=== PATIENT | male | born 1940 | race Caucasian/White ===

== ENCOUNTER 2017-01-30 07:06 | Day surgery (SDC) | payer MEDICARE ==
[~2017-01-30] VITALS: Ht 172.7 cm; Wt 90.7 kg
[~2017-01-30 07:06] MED LIST: ASPIR 8181 MG PO; EPIN0.3P INJ; METOPROLOL TART25 MG PO; PRILOSEC OTC20 MG PO; ZYRTEC10 M3 PO
--- NOTE | 2017-01-30 08:30 | NUR ---
01/30/17 0833 Nina Brenner 4637-PATIENT ARRIVED TO PACU ON 3L NC O2 SAT 98% PATIENT REACTIVE OPENS EYES AND FALLS BACK ASLEEP.
--- NOTE | 2017-02-01 08:56 | OR ---
[facility] [address], [place] [address] Signed DATE OF OPERATION: 01/30/2017 SURGEON: Adi Moore MD UPPER ENDOSCOPY REPORT PREOPERATIVE DIAGNOSES: 1. Gastroesophageal reflux disease. 2. Distal esophageal dysphagia. POSTOPERATIVE DIAGNOSES: 1. Unspecified distal esophageal mass (35 cm) versus severe inflammation. 2. Moderate-sized hiatal hernia. PROCEDURE: EGD with CLOtest and biopsies of the antrum and the esophageal lesion. ESTIMATED BLOOD LOSS: None. INDICATIONS: Rk is a 76-year-old gentleman who was asked to see me for both upper and lower endoscopy. His lower endoscopy was for followup screening colonoscopy. He declined at this time, however, he is much more concerned about his esophagus. He said he is having distal esophageal dysphagia. He described acid reflux for many years. It looks like he is on Prilosec. He has had food gets stuck and he has to get up from the table and go vomit. Once his upper teeth were pulled in October of this year, he said it has gotten worse. He said he will not have his dentures until the spring. In the office, I had given Rk a booklet on upper endoscopy. We looked at that together along with the risks including, but not limited to gas, bloating, crampy abdominal pain, bleeding, perforation requiring surgery, and missed diagnosis. We also discussed the need for IV conscious sedation. He had expressed understanding and wished to proceed. In addition, we did ask that he undergo a barium swallow as well. PROCEDURE NOTE: Rk was taken into our endoscopy suite and placed in a supine semi-recumbent position. He was given divided doses of 4 mg of Versed and 100 mcg of fentanyl. The posterior oropharynx was anesthetized with Hurricaine spray. A bite block was utilized for the case. The adult gastroscope was introduced and advanced under direct visualization of the camera out into the third portion of the duodenum. The duodenum and pyloric channel were unremarkable. The stomach was not particularly concerning. We went ahead and took a biopsy of the antrum for pathologic review as well as CLOtest. Upon retroflexion of scope, he does have a hiatal hernia, although I was unable to completely Electronically Signed By: ADI MOORE MD 02/01/17 0856 PATIENT NAME: RK GONZALEZ OPERATIVE REPORT DATE OF : 44 PHYSICIAN: ADI MOORE MD REPORT #: [id number] REPORT IS CONFIDENTIAL AND NOT TO BE RELEASED WITHOUT AUTHORIZATION [facility] [address], [place] [address] Signed insufflate his stomach to get an excellent view of that. We did watch that through multiple respiratory cycles and he clearly has moderate-sized hiatal hernia. No gastric or esophageal varices. No ulcerations. The scope was withdrawn up to the area of the hiatal hernia in the GE junction. He has either very severe inflammatory changes or mass around the GE junction at 35 cm. We took multiple circumferential biopsies in this area. We also took pictures for photodocumentation. His middle and upper esophagus were unremarkable. After this, the gas was suctioned out and the gastroscope removed. Rk tolerated this procedure quite well. RECOMMENDATIONS: I will see Rk back in my office in 7 to 14 days to review his results along with a barium swallow. He may need a CT scan of the chest, abdomen, and pelvis as well. MD LIZA Parker/KENNEDYL /[id number] cc: DO Adi Torre MD Electronically Signed By: ADI MOORE MD 02/01/17 0856 PATIENT NAME: GONZALEZRK OPERATIVE REPORT DATE OF : 44 PHYSICIAN: ADI MOORE MD REPORT #: [id number] REPORT IS CONFIDENTIAL AND NOT TO BE RELEASED WITHOUT AUTHORIZATION
== END 2017-01-30 09:10 | disposition home or self-care (01) ==
LOC: DS 07:06 → OPS 07:06 → DS 08:15 → OPS 09:10
PROVIDERS: Colon & Rectal Surgery
PROC: 0DB78ZX Excision of Stomach, Pylorus, Via Natural or Artificial Opening Endoscopic, Diagnostic (ICD-10-PCS; 2017-01-30)
PROC: 0DB38ZX Excision of Lower Esophagus, Via Natural or Artificial Opening Endoscopic, Diagnostic (ICD-10-PCS; principal; 2017-01-30 08:15)
DX: C15.5 Malignant neoplasm of lower third of esophagus (principal); K29.50 Unspecified chronic gastritis without bleeding; K21.9 Gastro-esophageal reflux disease without esophagitis; K44.9 Diaphragmatic hernia without obstruction or gangrene; I48.0 Paroxysmal atrial fibrillation; E78.5 Hyperlipidemia, unspecified; Z86.19 Personal history of other infectious and parasitic diseases; Z88.0 Allergy status to penicillin; Z91.09 Other allergy status, other than to drugs and biological substances; Z79.82 Long term (current) use of aspirin; Z79.899 Other long term (current) drug therapy; Z90.49 Acquired absence of other specified parts of digestive tract
CPT/HCPCS: 86677; 88305; 99152; 99153; J2250; J3010; J7120

== ENCOUNTER 2017-05-20 13:54 | Emergency (ER) | payer MEDICARE, OTHER ==
[~2017-05-20] VITALS: Ht 172.7 cm; Wt 92.3 kg
--- OUTSIDE RECORDS SUMMARY | ~2017-05-20 | XMS | Encounter Summary ---
Demographics + + + | Address | [address] | | | [place] [address] | + + + | Home Phone | | + + + | Preferred Language | Unknown | + + + | Marital Status | | + + + | Spiritism Affiliation | PEN | + + + | Race | White | + + + | Ethnic Group | Not or | + + + Author + + + | Author | [facility] | + + + | Organization | [facility] | + + + | Address | Unknown | + + + | Phone | Unavailable | + + + Support + + + + + | Name | Relationship | Address | Phone | + + + + + | Mally Mckay | ECON | [address] | | | | | [place] | | | | | [address] | | + + + + + Care Team Providers + +------+ + | Care Application Development Team Lead Name | Role | Phone | + +------+ + | Johan Schumacher DO | PCP | | + +------+ + Reason for Visit + + + | Reason | Comments | + + + | Tumor Board | ECC | | Recommendation | | + + + Encounter Details +--------+ + + + + | Date | Type | Department | Care Team | Description | +--------+ + + + + | 03/19/ | Documentati | [facility] | Trent Metcalf MD | Tumor Board | | 2018 | on | Center at [facility] [address]th | [address] | Recommendation (ECC) | | | | Floor [address] | [facility], | | | | | [place] Mailcode: [facility] | [place] [address] | | | | | [facility] | [phone] | | | | | and Healing, 6th | | | | | | floor [place], [place] | | | | | | [address] | | | | | | [phone] | | | +--------+ + + + + Social History + +-------+ +--------+------+ | Tobacco Use | Types | Packs/Day | Years | Date | | | | | Used | | + +-------+ +--------+------+ | Never Smoker | | | | | + +-------+ +--------+------+ + +---+---+---+ | Smokeless Tobacco: | | | | | Never Used | | | | + +---+---+---+ + + +---------+ + | Alcohol Use | Drinks/We | oz/Week | Comments | | | ek | | | + + +---------+ + | No | | | | + + +---------+ + + + + | Sex Assigned at | Date Recorded | | | | + + + | Not on file | | + + + as of this encounter Plan of Treatment Not on fileas of this encounter Visit Diagnoses Not on filein this encounter"
--- OUTSIDE RECORDS SUMMARY | ~2017-05-20 | XMS | Encounter Summary ---
Demographics + + + | Address | [address] | | | [place] [address] | + + + | Home Phone | | + + + | Preferred Language | Unknown | + + + | Marital Status | | + + + | Christian Affiliation | PEN | + + + | Race | White | + + + | Ethnic Group | Not or | + + + Author + + + | Author | [facility] | + + + | Organization | [facility] | + + + | Address | Unknown | + + + | Phone | Unavailable | + + + Support + + + + + | Name | Relationship | Address | Phone | + + + + + | Mally Mckay | ECON | [address] | | | | | [place] | | | | | [address] | | + + + + + Care Team Providers + +------+ + | Care Pearl Glue Drier Name | Role | Phone | + +------+ + | Lars Soares DO | PCP | | + +------+ + Reason for Visit AUTH/CERT +--------+--------+ + + + + | Status | Reason | Specialty | Diagnoses / | Referred By | Referred To | | | | | Procedures | Contact | Contact | +--------+--------+ + + + + | | | | | | | +--------+--------+ + + + + Encounter Details +--------+ + + + + | Date | Type | Department | Care Team | Description | +--------+ + + + + | 03/07/ | Hospital | [facility] [address] | Rell Montesinos, | | | 2017 | Encounter | [address] | MD [address] | | | | | [facility] | [address] | | | | | [place] | [place], [place] | | | | | ([facility]) | [address] | | | | | [place] [address] | [phone] | | | | | [phone] | | | +--------+ + + + [...] + + + as of this encounter Last Filed Vital Signs + + + + | Vital Sign | Reading | Time Taken | + + + + | Blood Pressure | 135/71 | 03/07/2017 3:02 PM PST | + + + + | Pulse | 56 | 03/07/2017 3:02 PM PST | + + + + | Temperature | 36.6 C (97.9 F) | 03/07/2017 2:25 PM PST | + + + + | Respiratory Rate | 16 | 03/07/2017 3:02 PM PST | + + + + | Oxygen Saturation | 100% | 03/07/2017 3:02 PM PST | + + + + | Inhaled Oxygen | - | - | | Concentration | | | + + + + | Weight | 88.6 kg (195 lb 4.8 | 03/07/2017 11:57 AM PST | | | oz) | | + + + + | Height | 172.7 cm (5' 7.99") | 03/07/2017 11:57 AM PST | + + + + | Body Mass Index | 29.7 | 03/07/2017 11:57 AM PST | + + + + in this encounter Discharge Instructions April Sotelo RN - 03/07/2017Home Care Instructions after EGD (Upper Endoscopy) with EUS (E ndoscopic Ultrasound) You may resume your normal diet and medications unless told otherwise. Medications The medications you received for your procedure can cause you to be forgetful and drowsy an d will take the remainder of the day to wear off. DO NOT drink alcohol, drive, operate heavy machinery, sign legal documents, or make major d ecisions until tomorrow. Common After Effects Mild abdominal pain, bloating, and gas. Sore throat. You may treat it with throat lozenges and/or gargle with warm salt water. You may bruise at your IV site. If you have pain, redness, or swelling at your IV site a pply a warm compress. Complications Call your GI doctor if you have: Abnormal pain or any new unexplained symptoms. Shortness of breath, chest or neck pain. Vomiting blood or rectal bleeding. Fever above 101.5 Redness, pain, or swelling at your IV site that is not relieved with warm compress. For any questions related to your procedure, call Friday- Friday 8:00- 4:30 Call the endoscopy department toll free ext. [phone] or After business hours or on weekends and holiday Hospital Change Person toll free [phone] ext. [phone] and have the GI doctor admissions nurse paged. The provider who performed your procedure is: Dr. Montesinos Results of your EGD/EUS: procedure completed Follow up Appointments with: Dr Arenas Your primary care provider or referring provider will receive copies of the procedure repor t and all the pathology reports with recommendations for treatment if needed. If Noted above that biopsies were taken or polyps removed we will receive the results in ap proximately 1 week. If you have not heard from us after 2 weeks please call for your results . in this encounter Medications at Time of Discharge + + +-------+---------+--------+ + | Medication | Sig. | Disp. | Refills | Start | End Date | | | | | | Date | | + + +-------+---------+--------+ + | aspirin EC 81 mg | Take 81 mg by mouth | | | | | | oral tablet,delayed | once daily in the | | | | | | release (DR/EC) | morning. | | | | | + + +-------+---------+--------+ + | cetirizine 10 mg | Take 10 mg by mouth | | | | | | oral tablet | once daily in the | | | | | | | morning. | | | | | + + +-------+---------+--------+ + | metoprolol | Take 25 mg by mouth | | | | | | tartrate 25 mg oral | two times daily. | | | | | | tablet | | | | | | + + +-------+---------+--------+ + | omeprazole 20 mg | Take 20 mg by mouth | | | | | | oral capsule,delayed | once daily in the | | | | | | release(DR/EC) | morning. | | | | | + + +-------+---------+--------+ + as of this encounter Plan of Treatment Not on fileas of this encounter Procedures + +--------+ + + + | Procedure Name | Priori | Date/Time | Associated Diagnosis | Comments | | | ty | | | | + +--------+ + + + | EUS UPPER | Routin | 03/07/2017 | Malignant neoplasm | Results for this | | | e | 1:53 PM | of esophagus, | procedure are in the | | | | PST | unspecified location | results section. | | | | | (HCC) | | + +--------+ + + + in this encounter Results EUS UPPER (03/07/2017 1:53 PM) + + + | Specimen | Performing Laboratory | + + + | | [facility] | + + + + + | Narrative | + + | Procedure Date: 03/07/2017 Patient Name: Kevin Mckay Order #: | | [id number] Date of : 1940 CSN: [id number] Admit Type: Ambulatory Room: GI 3 | | Procedure: Upper EUS Indications: Pre-treatment | | staging of esophageal adenocarcinoma Providers: RELL MONTESINOS MD | | (Doctor), JEREMIAH RUANO, RN (Nurse), | | BEBO VARNER, Car Clerk Pullman (Car Clerk Pullman) Referring MD: HEIDY ARENAS MD | | Requesting Provider: Medicines: Monitored Anesthesia Care | | Complications: No immediate complications. Procedure: | | Pre-Anesthesia Assessment: - Pre-procedure | | physical examination revealed no | | contraindications to sedation. - Airway | | Examination: Mallampati Class III (part of the | | uvula and soft palate visualized). | | - ASA Grade Assessment: III - A patient with | | severe systemic disease. | | - After reviewing the risks and benefits, the | | patient was deemed in satisfactory condition | | to undergo the procedure. | | - The anesthesia plan was to use monitored | | anesthesia care (MAC). | | - Immediately prior to administration of | | medications, the patient was re-assessed for | | adequacy to receive sedatives. | | Prior to the procedure, a History and Physical | | with airway assessment was performed (see | | patient record), and patient medications and | | allergies were reviewed. The risks and | | benefits of the procedure and the sedation | | options and risks were discussed. All questions were | | answered and informed consent was obtained. | | After reviewing the risks and benefits, the | | patient was deemed in satisfactory condition | | to undergo the procedure. Immediately prior | | to administration of medications, the patient | | was re-assessed for adequacy to receive | | sedatives. The heart rate, respiratory rate, oxygen | | saturations, blood pressure, adequacy of | | pulmonary ventilation, and response to care | | were monitored throughout the procedure. The | | physical status of the patient was | | re-assessed after the procedure. The Olympus | | [id number] Gastroscope #[id number] was introduced | | through the mouth, and advanced to the second | | part of duodenum. The Olympus [id number] | | Radial Echoendoscope #[id number] was introduced | | through the mouth, and advanced to the | | duodenal bulb. The upper EUS was accomplished | | without difficulty. The patient tolerated | | the procedure well. Estimated Blood Loss: Estimated blood loss was minimal. | | Findings: Endoscopic Finding : The esophagus and gastroesophageal | | junction were examined with white light from a forward view and retroflexed | | position. 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 These changes involved the mucosa at the upper extent of | | the gastric folds (37 cm from the incisors) extending to the Z-line (25 cm | | from the incisors). The maximum longitudinal extent of these esophageal | | mucosal changes was 12 cm in length. A medium-sized hiatal hernia was | | found. The proximal extent of the gastric folds (end of tubular esophagus) | | was 37 cm from the incisors. The hiatal narrowing was 40 cm from the | | incisors. Arising from the area of Martin's esophagis, a large ulcerating | | mass was found in the lower third of the esophagus extending into | | gastroesophageal junction, 30 to 37 cm from the incisors. The mass was | | non-obstructing and partially circumferential (involving two thirds of the | | lumen circumference). The exam of the stomach was otherwise normal. | | The examined duodenum was endoscopically normal. Endosonographic Finding : | | A hypoechoic mass was found in the thoracic esophagus and in the | | gastroesophageal junction. The mass was encountered at 30 cm from the | | incisors and extended to 37 cm. The lesion was partially circumferential | | (involving 70% of the lumen). The endosonographic borders were irregular. The | | mass measured up to 10 mm in thickness. There was sonographic evidence | | suggesting invasion into the adventitia (Layer 5). There was no sign of | | significant endosonographic abnormality in the common bile duct. The maximum | | diameter of the duct was 3 mm. There was no sign of significant | | endosonographic abnormality in the pancreatic head and in the pancreatic | | body. The pancreatic duct measured up to 2 mm in diameter. No | | lymphadenopathy seen. 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 | | This was staged T3 N0 Mx by endosonographic | | criteria. Recommendation: - Discharge patient to home (ambulatory). | | - Return to referring physician as previously | | scheduled. - The findings and recommendations | | were discussed with the patient and their | | spouse. Attending Participation: I personally performed the entire procedure. | | MD RELL Soto MD 03/07/2017 2:26:50 PM This report has been | | signed electronically. Number of Addenda: 0 Note Initiated On: 03/07/2017 1:53 PM CC | | Letter to: LARS SOARES, DO | + + in this encounter Visit Diagnoses + + | Diagnosis | + + | Malignant neoplasm of esophagus, unspecified location (HCC) - Primary | + + Admitting Diagnoses + + | Diagnosis | + + | Malignant neoplasm of esophagus, unspecified - C15.9 (ICD-10-CM) - 150.9 (ICD-9-CM) - | | Malignant neoplasm of esophagus, unspecified location (HCC) | + + Administered Medications + +--------+---------+------+------+------+ | Medication Order | MAR | Action | Dose | Rate | Site | | | Action | Date | | | | + +--------+---------+------+------+------+ + +---+ | lidocaine viscous (XYLOCAINE | | | VISCOUS) 2 % mucosal solution 15 | | | mL 15 mL, oral, INTRAPROCEDURE | | | PRN, Starting Fri03/07/17 at | | | 1200, Until Fri03/07/17 at 2213, | | | sore oropharynx | | + +---+ | | | + +---+ | simethicone (MYLICON) | | | suspension 3.333 mg 3.333 mg | | | (rounded from 3.3333 mg = 1 | | | drop), oral, INTRAPROCEDURE PRN, | | | Starting Fri03/07/17 at 1200, | | | Until Fri03/07/17 at 2213, gas | | | bubbles in endoscope | | + +---+ | | | + +---+ + +---------+ +---+---+---+ | sodium chloride 0.9% IV | New Bag | 03/07/20 | | | | | infusion 50 mL/hr, intravenous, | | 17 13:45 | | | | | CONTINUOUS, Starting 03/07/17 | | PST | | | | | at 1215, Until Fri03/07/17 at | | | | | | | 2213 | | | | | | + +---------+ +---+---+---+ + + +---+---+---+ | given by anesthesiology | 03/07/20 | | | | | | 17 14:15 | | | | | | PST | | | | + + +---+---+---+ +---+---+ | | | +---+---+ in this encounter
--- OUTSIDE RECORDS SUMMARY | ~2017-05-20 | XMS | Encounter Summary ---
Demographics + + + | Address | [address] | | | [place] [address] | + + + | Home Phone | | + + + | Preferred Language | Unknown | + + + | Marital Status | | + + + | Jew Affiliation | PEN | + + + | Race | White | + + + | Ethnic Group | Not or | + + + Author + + + | Author | [facility] | + + + | Organization | [facility] | + + + | Address | Unknown | + + + | Phone | Unavailable | + + + Support + + + + + | Name | Relationship | Address | Phone | + + + + + | Mally Mckay | ECON | [address] | | | | | [place] | | | | | [address] | | + + + + + Care Team Providers + +------+ + | Care School Transportation Supervisor Name | Role | Phone | + +------+ + | Johan Schumacher DO | PCP | | + +------+ + Reason for Visit + + + | Reason | Comments | + + + | New patient | | | consultation | | + + + AUTH/CERT +--------+--------+ + + + + | Status | Reason | Specialty | Diagnoses / | Referred By | Referred To | | | | | Procedures | Contact | Contact | +--------+--------+ + + + + | | | | | | | +--------+--------+ + + + + Encounter Details +--------+---------+ + + + | Date | Type | Department | Care Team | Description | +--------+---------+ + + + | 03/07/ | Office | Digestive Health | Trent Metcalf MD | Malignant neoplasm | | 2017 | Visit | Center at [facility] 6th | [address] | of esophagus, | | | | Floor [address] | [facility], | unspecified location | | | | Ave Mailcode: [facility] | [place] [address] | ([facility]) (Primary Dx) | | | | [facility] | [phone] | | | | | and Healing, 6th | | | | | | floor [place], [place] | | | | | | [address] | | | | | | [phone] | | | +--------+---------+ + + + Social History + +-------+ [...] + + + | Blood Pressure | 128/74 | 03/07/2017 9:52 AM PST | + + + + | Pulse | 55 | 03/07/2017 9:52 AM PST | + + + + | Temperature | 36.3 C (97.4 F) | 03/07/2017 9:52 AM PST | + + + + | Respiratory Rate | 15 | 03/07/2017 9:52 AM PST | + + + + | Oxygen Saturation | - | - | + + + + | Inhaled Oxygen | - | - | | Concentration | | | + + + + | Weight | 88.6 kg (195 lb 4.8 | 03/07/2017 9:52 AM PST | | | oz) | | + + + + | Height | 172.7 cm (5' 8") | 03/07/2017 9:52 AM PST | + + + + | Body Mass Index | 29.7 | 03/07/2017 9:52 AM PST | + + + + in this encounter Progress Notes Marely Jose MD - 03/07/2017 10:00 AM PSTFormatting of this note may be different from the original. The Department of Surgery History and Physical Author: Marely Jose MD Attending Physician: Trent Metcalf MD 03/07/2017, 9:30 AM Chief Complaint: Esophageal Cancer, new diagnosis HPI: Kevin Mckay is a 76 y.o. male who is referred for evaluation of newly diagnosed esophageal cancer. He has a longstanding history of GERD and takes Prilosec daily. He appar ently had an endoscopy in the 1970s and was told he had some "scar tissue" but has never had documented Martin's or repeat surveillance. Several months ago, the patient had his upper teeth pulled in preparation for dentures. Because of this, he has been unable to chew foods very thoroughly and has noticed solids starting to stick. He has not lost any weight. He was sent for EGD which showed a mass at the GE junction with biopsies showing poorly differenti ated adenocarcinoma. CT and PET have shown no evidence of metastatic disease. He has been se en by an oncologist who has discussed likely chemoradiation, but are awaiting surgical consu ltation and EUS which is scheduled for later today. The patient is otherwise doing well. He is active and has few medical comorbidities other t asencio being overweight (BMI ~29) and atrial fibrillation on ASA. He was able to do 4 flights o f stairs today without chest pain or shortness of breath, though his legs do get a bit tired . He is adjusting to his new diagnosis and is eager to know what the next steps are, though is somewhat hesitant about the prospect of undergoing a major surgery. That said, he wants t o pursue cure and understands the surgery will give him the best chance of that. PAST MEDICAL HISTORY: Past Medical History: Diagnosis Date Adenocarcinoma of esophagus (HCC) Atrial fibrillation (HCC) Chronic gastritis Esophageal mass GERD (gastroesophageal reflux disease) History of hiatal hernia Hyperlipidemia PAST SURGICAL HISTORY: Past Surgical History Procedure Laterality Date Egd (esophagogastroduodenoscopy) Colonoscopy Cholecystectomy Appendectomy Oral surgery HOME MEDICATIONS: aspirin EC 81 mg oral tablet,delayed release (DR/EC), Take 81 mg by mouth once daily in the morning. cetirizine 10 mg oral tablet, Take 10 mg by mouth once daily in the morning. metoprolol tartrate 25 mg oral tablet, Take 25 mg by mouth two times daily. omeprazole 20 mg oral capsule,delayed release(DR/EC), Take 20 mg by mouth once daily in the morning. ALLERGIES: Allergies Allergen Reactions Oxycodone Nausea and Acute Tubular Necrosis Penicillins Hives SOCIAL HISTORY: Social History Substance Use Topics Smoking status: Never Smoker Smokeless tobacco: Never Used Alcohol use No FAMILY HISTORY: Non-contributory REVIEW OF SYSTEMS: General: no fevers, fatigue, chills, weight loss, sweats, headaches. HEENT: no post nasal drip, sore throat, Resp: no SOB, cough, wheezing. MSK: no joint pain, muscle aches/pains. CV: no chest pain, palpitations, dyspnea, claudication GI: As per HPI : no changes in urination or frequency/urge/incontinence. Skin: no changes in skin color, suspicious/new lesions, itching, or flushing. Heme/Lymphatic: no easy bruising or bleeding, no enlarged lymph nodes. Endocrine: no excessive thirst or temperature sensitivity. Allergic: no seasonal allergies, hives, rash, or exposure to infectious diseases. PHYSICAL EXAM: BP 128/74 | Pulse 55 | Temp (Src) 36.3 C (97.4 F) (Oral) | RR 15 | Ht 1.727 m (5' 8") | Wt 88.6 kg (195 lb 4.8 oz) | BMI 29.7 kg/(m^2) General: Alert and oriented, NAD. HEENT: Sclerae anicteric, EOMI Respiratory: Unlabored CV: RRR Abdomen: soft, nondistended, non-tender Neuro: CN grossly intact, no obvious neurologic defecits. Extremities: Warm and well perfused, no peripheral edema LABS: None in our system IMAGING: PET CT 03/06/17 IMPRESSION: Moderately increased uptake within the distal esophagus and very proximal stomach, consiste nt with esophageal adenocarcinoma. No evidence of additional local or distant metastatic dis ease. CT 02/13/2017 EGD 01/30/2017 PATHOLOGY: 01/30/2017 ASSESSMENT AND PLAN: This is Kevin Mckay, a 76 y.o. M, presenting with a new diagnosis of esophageal canc er. There is no evidence of metastatic disease on PET/CT but his T stage is not yet formaliz ed, though he is scheduled for EUS later today. Looking at the photos, we expect this will b e at last a T2 or T3 lesion and a trimoidal approach is most likely to be the treatment viktoria mmendation. We spent a great deal of time today discussion the natural history of esophageal cancer and the rationale behind our treatment approaches. All questions were answered and t he patient was provided our esophageal cancer informational booklet. The patient appears to be a good candidate for esophagectomy and is fit to proceed with surgery. -- Patient deemed an appropriate candidate for surgery -- Patient to have staging EUS later today -- Will discuss patient at upcoming ECC -- Pending staging and ECC, anticipate most likely will be a candidate for trimodal treatme nt pathway -- We will contact patient with results of staging workup and ECC recommendations and will see him back in clinic when ready to proceed with surgery. Dr. Metcalf has seen and examined the patient and agrees with the above plan. Signed: Marely Jose MD Pager: [phone] [facility] Department of Surgery STAFF: I personally interviewed the patient, performed the pertinent parts of the physical examina tion and personally formulated the plan with the resident. I agree with the residents docum entation and have documented any additions or exceptions. I spent 25 minutes in the care of this patient. Greater than 50% of the time was spent counseling and coordination of care, i ncluding reviewing test results, discussing findings and treatment options and answering que stions. Diagnosis is esophageal cancer. in this encounter Plan of Treatment Not on fileas of this encounter Visit Diagnoses + + | Diagnosis | + + | Malignant neoplasm of esophagus, unspecified location (HCC) - Primary | + +
--- OUTSIDE RECORDS SUMMARY | ~2017-05-20 | XMS | Encounter Summary ---
Demographics + + + | Address | [address] | | | [place] [address] | + + + | Home Phone | | + + + | Preferred Language | Unknown | + + + | Marital Status | | + + + | Church Affiliation | PEN | + + + | Race | White | + + + | Ethnic Group | Not or | + + + Author + + + | Author | [facility] | + + + | Organization | [facility] | + + + | Address | Unknown | + + + | Phone | Unavailable | + + + Support + + + + + | Name | Relationship | Address | Phone | + + + + + | Mally Mckay | ECON | [address] | | | | | [place] | | | | | [address] | | + + + + + Care Team Providers + +------+ + | Care Rn Paralegal Name | Role | Phone | + +------+ + | Johan Schumacher DO | PCP | | + +------+ + Reason for Visit + + + | Reason | Comments | + + + | Referral To Surgery | | | - General | | + + + Encounter Details +--------+ + + + + | Date | Type | Department | Care Team | Description | +--------+ + + + + | 02/28/ | Abstract | Digestive Health | Trent Metcalf MD | Referral To Surgery | | 2017 | | Center at [facility] 6th | [address] | - General | | | | Floor [address] | [address] [place], | | | | | [place] Mailcode: [facility] | [place] [address] | | | | | [facility] | [phone] | | | | | and [address], 6th | | | | | | floor [place], [place] | | | | | | [address] | | | | | | [phone] | | | +--------+ + + + + Social History + +-------+ +--------+------+ | Tobacco Use | Types | Packs/Day | Years | Date | | | | | Used | | + +-------+ +--------+------+ | Never Assessed | | | | | + +-------+ +--------+------+ + + + | Sex Assigned at | Date Recorded | | | | + + + | Not on file | | + + + as of this encounter Plan of Treatment Not on fileas of this encounter Visit Diagnoses Not on filein this encounter"
--- OUTSIDE RECORDS SUMMARY | ~2017-05-20 | XMS | Encounter Summary ---
Demographics + + + | Address | [address] | | | [place] [address] | + + + | Home Phone | | + + + | Preferred Language | Unknown | + + + | Marital Status | | + + + | Yazidi Affiliation | PEN | + + + | Race | White | + + + | Ethnic Group | Not or | + + + Author + + + | Author | [facility] | + + + | Organization | [facility] | + + + | Address | Unknown | + + + | Phone | Unavailable | + + + Support + + + + + | Name | Relationship | Address | Phone | + + + + + | Mally Mckay | ECON | [address] | | | | | [place] | | | | | [address] | | + + + + + Care Team Providers + +------+ + | Care Research Nutritionist Name | Role | Phone | + +------+ + | Johan Schumacher DO | PCP | | + +------+ + Encounter Details +--------+ + + + + | Date | Type | Department | Care Team | Description | +--------+ + + + + | 02/24/ | Abstract | Digestive Health | Clinic, Surgery | | | 2017 | | Center at [facility] 6th | | | | | | Floor [address] | | | | | | [place] Mailcode: [facility] | | | | | | [place] [facility] | | | | | | and Healing, 6th | | | | | | floor [place], [place] | | | | | | [address] | | | | | | [phone] | | | +--------+ + + + [...]
--- OUTSIDE RECORDS SUMMARY | ~2017-05-20 | XMS | Encounter Summary ---
Demographics + + + | Address | [address] | | | [place] [address] | + + + | Home Phone | | + + + | Preferred Language | Unknown | + + + | Marital Status | | + + + | Druze Affiliation | PEN | + + + | Race | White | + + + | Ethnic Group | Not or | + + + Author + + + | Author | [facility] | + + + | Organization | [facility] | + + + | Address | Unknown | + + + | Phone | Unavailable | + + + Support + + + + + | Name | Relationship | Address | Phone | + + + + + | Mally Mckay | ECON | [address] | | | | | [place] | | | | | [address] | | + + + + + Care Team Providers + +------+ + | Care Muffler Installer Name | Role | Phone | + +------+ + | Johan Schumacher DO | PCP | | + +------+ + Encounter Details +--------+ + + + + | Date | Type | Department | Care Team | Description | +--------+ + + + + | 02/21/ | Hospital | Registration HOV | | | | 2017 | Encounter | [address] | | | | | | [place] | | | | | | [place] | | | | | | [address] | | | +--------+ + + + [...]
--- OUTSIDE RECORDS SUMMARY | ~2017-05-20 | XMS | Encounter Summary ---
Demographics + + + | Address | [address] | | | [place] [address] | + + + | Home Phone | | + + + | Preferred Language | Unknown | + + + | Marital Status | | + + + | Adventist Affiliation | PEN | + + + [...] + | Mally Mckay | ECON | [address] | | | | | [place] | | | | | [address] | | + + + + + Care Team Providers + +------+ + | Care Cell Changer Name | Role | Phone | + +------+ + | Johan Schumacher DO | PCP | | + +------+ + Encounter Details +--------+ + + + + | Date | Type | Department | Care Team | Description | +--------+ + + + + | 03/11/ | Hospital | LAB SURGICAL | | | | 2016 | Encounter | PATHOLOGY [address] | | | | | [address] | | | | | | Road [place], [place] | | | | | | [address] | | | +--------+ + + + [...] + + + as of this encounter Medications at Time of Discharge [...] encounter Visit Diagnoses Not on filein this encounter Admitting Diagnoses + + | Diagnosis | + + | Malignant neoplasm of esophagus, unspecified | + +"
--- OUTSIDE RECORDS SUMMARY | ~2017-05-20 | XMS | Encounter Summary ---
Demographics + + + | Address | [address] | | | [place] [address] | + + + | Home Phone | | + + + | Preferred Language | Unknown | + + + | Marital Status | | + + + | Islam Affiliation | PEN | + + + [...] + | Mally Mckay | ECON | [address] | | | | | [place] | | | | | [address] | | + + + + + Care Team Providers + +------+ + | Care Agency Manager Name | Role | Phone | + [...] + + + + | 03/07/ | Anesthesia | Digestive Health | Jabier Bo | | | 2017 | | [place] at [facility] 4th | [address] [facility] | | | | | [facility] [address] [facility] | [facility] | | | | | [facility] | [place], [place] | | | | | Mailcode: [facility] | [address] | | | | | [address] | [phone] | | | | | [address] [place], [place] | | | | | | [address] | | | | | | [phone] | | | +--------+ + + + + Anesthesia Record + + + + + | Procedure Name | Responsible | Anesthesia Start | Anesthesia Stop Time | | | Anesthesiologist | Time | | + + + + + | EUS UPPER | Jabier Bo, | 03/07/17 1349 | 03/07/17 1430 | | | MD | | | + + + + + +----+---+ + + | Da | T | Event | Comment | | te | i | | | | | m | | | | | e | | | +----+---+ + + | 12 | 1 | Pt. Check | Prior to anesthesia start, pt. Identified, examined, chart | | /2 | 3 | | reviewed, PARQ held, anesthetic plan made or approved by | | 2/ | 3 | | attending anesthesiologist. NPO status confirmed as appropriate | | 20 | 7 | | for procedure Preoperative evaluation: unchanged | | 17 | | | | +----+---+ + + | | 1 | Eq Check | Anesthesia machine checked Equipment verified | | | 3 | | | | | 3 | | | | | 7 | | | +----+---+ + + | | 1 | An Start | | | | 3 | | | | | 4 | | | | | 9 | | | +----+---+ + + | | 1 | Vitals | Monitors applied Vital signs checked Patient ready for anesthesia | | | 3 | Checked | | | | 5 | | | | | 1 | | | +----+---+ + + | | 1 | Ready | | | | 3 | | | | | 5 | | | | | 4 | | | +----+---+ + + | | 1 | Abx held | Contraindicated, or not indicated for this procedure, or already | | | 3 | Medical or | receiving antibiotics | | | 5 | Surgical | | | | 5 | Reason | | +----+---+ + + | | 1 | Quick Note | Local/MAC. Sedation as charted. O2 via NC. Pt positioned for | | | 3 | | comfort. | | | 5 | | | | | 5 | | | +----+---+ + + | | 1 | Incision | | | | 4 | | | | | 0 | | | | | 1 | | | +----+---+ + + | | 1 | Surgery end | | | | 4 | | | | | 2 | | | | | 3 | | | +----+---+ + + | | 1 | Anesthesia | | | | 4 | End | | | | 3 | | | | | 0 | | | +----+---+ + + +------+ | Meds | +------+ + + + | Name | Total | + + + | propofol | 40 mg | + + + | propofol INF | 175,500 mcg | + + + | sodium chloride 0.9% IV infusion | 300 mL | + + + + + | No agents on file. | + + + + | No blood administrations on file. | + + +--------+ + + + | Type | Details | Placement | Removal | +--------+ + + + | Periph | 03/07/17; 1217; Jhoan; | 03/07/17 1217 by | 03/07/17 1515 by | | jennifer | Right; Hand; 20 g; None; No; | Myah Thomas, | Yakelin Charles RN | | IV | Positive; 03/07/17; 1515; | RN | | | | Discharge | | | +--------+ + + + in this encounter Social History + +-------+ +--------+------+ | Tobacco [...] Visit Diagnoses Not on filein this encounter Administered Medications + +---------+ + +-------+------+ | Medication Order | MAR | Action | Dose | Rate | Site | | | Action | Date | | | | + +---------+ + +-------+------+ | propofol (DIPRIVAN) injection | New Bag | 03/07/20 | 125 | 67.5 | | | INTRAPROCEDURE CONTINUOUS PRN, | | 17 13:56 | mcg/kg/m | mL/hr | | | Starting Fri03/07/17 at 1356, | | PST | in | | | | Until [facility] 03/13/17 at 0711 | | | | | | + +---------+ + +-------+------+ + + + + +---+ | Rate/Dose Change | 03/07/20 | 100 | 54 mL/hr | | | | 17 14:02 | mcg/kg/m | | | | | PST | in | | | + + + + +---+ +---+---+ | | | +---+---+ + +-------+ +-------+---+---+ | propofol INTRAPROCEDURE PRN, | Given | 03/07/20 | 20 mg | | | | Starting 03/07/17 at 1356, | | 17 13:56 | | | | | Until Cristina 03/13/17 at 0711 | | PST | | | | + +-------+ +-------+---+---+ +-------+ +-------+---+---+ | Given | 03/07/20 | 20 mg | | | | | 17 13:59 | | | | | | PST | | | | +-------+ +-------+---+---+ +---+---+ | | | +---+---+ + +---------+ +---+---+---+ | sodium chloride 0.9% IV | New Bag | 03/07/20 | | | | | infusion 50 mL/hr, intravenous, | | 17 13:45 | | | | | CONTINUOUS, Starting Fri03/07/17 | | PST | | | | [...] +---+---+ | | | +---+---+ in this encounter"
--- OUTSIDE RECORDS SUMMARY | ~2017-05-20 | XMS | Encounter Summary ---
Demographics + + + | Address | [address] | | | [place] [address] | + + + | Home Phone | | + + + | Preferred Language | Unknown | + + + | Marital Status | | + + + | Mosque Affiliation | PEN | + + + | Race | White | + + + | Ethnic Group | Not or | + + + Author + + + | Author | [facility] | + + + | Organization | [facility] | + + + | Address | Unknown | + + + | Phone | Unavailable | + + + Support + + + + + | Name | Relationship | Address | Phone | + + + + + | Mally Mckay | ECON | [address] | | | | | [place] | | | | | [address] | | + + + + + Care Team Providers + +------+ + | Care Certified Medical Coding Specialist Name | Role | Phone | + +------+ + | Johan Schumacher DO | PCP | | + +------+ + Encounter Details +--------+ + + + + | Date | Type | Department | Care Team | Description | +--------+ + + + + | 03/04/ | Orders Only | Preoperative | Abby Gamino, | | | 2016 | | Medicine Clinic at | [place] | | | | | [facility] | [phone] | | | | | Stay [address] | | | | | | [facility] | | | | | | Mailcode: [id number] | | | | | | [address] | | | | | | [address] [place], [place] | | | | | | [address] | | | | | | [phone] | | | +--------+ + + + [...]
--- OUTSIDE RECORDS SUMMARY | ~2017-05-20 | XMS | Encounter Summary ---
Demographics + + + | Address | [address] | | | [place] [address] | + + + | Home Phone | | + + + | Preferred Language | Unknown | + + + | Marital Status | | + + + | Sikhism Affiliation | PEN | + + + | Race | White | + + + | Ethnic Group | Not or | + + + Author + + + | Author | [facility] | + + + | Organization | [facility] | + + + | Address | Unknown | + + + | Phone | Unavailable | + + + Support + + + + + | Name | Relationship | Address | Phone | + + + + + | Mally Mckay | ECON | [address] | | | | | [place] | | | | | [address] | | + + + + + Care Team Providers + +------+ + | Care Music Composition Teacher Name | Role | Phone | + +------+ + | Johan Schumacher DO | PCP | | + +------+ + Reason for Visit + + + | Reason | Comments | + + + | Medical Records | | | Review | | + + + Encounter Details +--------+ + + + + | Date | Type | Department | Care Team | Description | +--------+ + + + + | 04/15/ | Abstract | Digestive Health | Trent Metcalf MD | Medical Records | | 2018 | | Center at [facility] 6th | [address] | Review | | | | Floor [address] | [address] [place], | | | | | [place] Mailcode: [facility] | [place] [address] | | | | | [facility] | [phone] | | | | | and [address], [address]th | | | | | | floor [place], [place] | | | | | | [address] | | | | | | [phone] | | | +--------+ + + + [...]
--- OUTSIDE RECORDS SUMMARY | ~2017-05-20 | XMS | Encounter Summary ---
Demographics + + + | Address | [address] | | | [place] [address] | + + + | Home Phone | | + + + | Preferred Language | Unknown | + + + | Marital Status | | + + + | Episcopalian Affiliation | PEN | + + + | Race | White | + + + | Ethnic Group | Not or | + + + Author + + + | Author | [facility] | + + + | Organization | [facility] | + + + | Address | Unknown | + + + | Phone | Unavailable | + + + Support + + + + + | Name | Relationship | Address | Phone | + + + + + | Mally Mckay | ECON | [address] | | | | | [place] | | | | | [address] | | + + + + + Care Team Providers + +------+ + | Care Gray Mixing Operator Name | Role | Phone | + [...] | +--------+ + + + + | 02/25/ | Documentati | Digestive Health | Lab, Gi Procedure | Medical Records | | 2017 | on | Center at [facility] 4th | | Review | | | | Floor [address] | | | | | | [facility] | | | | | | Mailcode: [id number] | | | | | | Mary Jane Gretchen | | | | | | [address] [place], [place] | | | | | | [address] | | | | | | [phone] | | | +--------+ + + + [...]
--- OUTSIDE RECORDS SUMMARY | ~2017-05-20 | XMS | Encounter Summary ---
Demographics + + + | Address | [address] | | | [place] [address] | + + + | Home Phone | | + + + | Preferred Language | Unknown | + + + | Marital Status | | + + + | Worship Affiliation | PEN | + + + | Race | White | + + + | Ethnic Group | Not or | + + + Author + + + | Author | [facility] | + + + | Organization | [facility] | + + + | Address | Unknown | + + + | Phone | Unavailable | + + + Support + + + + + | Name | Relationship | Address | Phone | + + + + + | Mally Mckay | ECON | [address] | | | | | [place] | | | | | [address] | | + + + + + Care Team Providers + +------+ + | Care Handstitching Machine Collar Feller Name | Role | Phone | + +------+ + | Lars Soares DO | PCP | | + +------+ + Encounter Details +--------+ + + + + | Date | Type | Department | Care Team | Description | +--------+ + + + + | 02/25/ | Inside | Digestive Health | Heidy Arenas MD | | | 2017 | Referral | Center at [facility] 4th | [address] | | | | Order | Floor [address] | [facility], | | | | | [facility] | [place] [address] | | | | | Mailcode: [id number] | [phone] | | | | | [facility] | | | | | | [address], [place] | | | | | | [address] | | | | | | [phone] | | | +--------+ + + + [...] Treatment Not on fileas of this encounter Results EUS UPPER (03/07/2017 1:53 PM) + + + | Specimen | Performing Laboratory | + + + | | [facility] | + + + + + | Narrative | + + | Procedure Date: 03/07/2017 Patient Name: Kevin Mckay Order #: | | [id number] Date of : 1940 CSN: [id number] Admit Type: Ambulatory Room: GI 3 | | Procedure: Upper EUS Indications: Pre-treatment | | staging of esophageal adenocarcinoma Providers: RELL SANDY MD | | (Doctor), JEREMIAH RUANO, RN (Nurse), | | BEBO VARNER, Director Of Institutional Sales (Director Of Institutional Sales) Referring MD: HEIDY ARENAS MD | | [...] procedure. The Olympus | | [id number] Gastroscope #[id number] was introduced | | through the mouth, and advanced to the second | | part of duodenum. The Olympus [id number] | | Radial Echoendoscope #[id number] was introduced | | through the mouth, [...] unspecified location (HCC) - Primary | + +"
--- OUTSIDE RECORDS SUMMARY | ~2017-05-20 | XMS | Encounter Summary ---
Demographics + + + | Address | [address] | | | [place] [address] | + + + | Home Phone | | + + + | Preferred Language | Unknown | + + + | Marital Status | | + + + | Pentecostal Affiliation | PEN | + + + | Race | White | + + + | Ethnic Group | Not or | + + + Author + + + | Author | [facility] | + + + | Organization | [facility] | + + + | Address | Unknown | + + + | Phone | Unavailable | + + + Support + + + + + | Name | Relationship | Address | Phone | + + + + + | Mally Mckay | ECON | [address] | | | | | [place] | | | | | [address] | | + + + + + Care Team Providers + +------+ + | Care Pipe Puller Name | Role | Phone | + +------+ + | Johan Schumacher DO | PCP | | + +------+ + Reason for Visit + + + | Reason | Comments | + + + | Pre-op evaluation | | + + + Encounter Details +--------+ + + + + | Date | Type | Department | Care Team | Description | +--------+ + + + + | 03/04/ | Telephone-S | Preoperative | | Pre-op evaluation | | 2017 | charles | [facility] at | | | | | | [facility]PV | | | | | | Stay [address] | | | | | | [facility] | | | | | | Mailcode: [id number] | | | | | | [facility] [place] | | | | | | [address], [place] | | | | | | [address] | | | | | | [phone] | | | +--------+ + + + [...] | Meds | +------+ + + + No medications | on file. | + + + + + | No agents on file. | + + + + | No blood administrations on file. | + + +--------+ + + + | Type | Details | Placement | Removal | +--------+ + + + | Periph | 03/07/17; 1217; Jhoan; | 03/07/17 1217 by | 03/07/17 151 by | | [email or web address] | Right; Hand; 20 g; None; No; | Myah Thomas, | Yakelin Charles RN | | IV | Positive; 03/07/17; 1514; | RN | | | | Discharge [...] + + + as of this encounter Instructions Patient Instructions - Abby Gamino RN - 03/04/2017 4:29 PM PSTFormatting of this note may be different from the original. PREOPERATIVE INSTRUCTIONS Do not eat or drink anything after midnight the night before surgery. TAKE the following medications with a sip of water on the morning of surgery: METOPROLOL TARTRATE 25 MG TABLET OMEPRAZOLE 20 MG CAPSULE,DELAYED RELEASE Do NOT take the following medications on the morning of surgery: ASPIRIN 81 MG TABLET,DELAYED RELEASE CETIRIZINE 10 MG TABLET Unless Otherwise Directed by your Surgeon Do not take any Aspirin, vitamin E or non-ster oidal anti-inflammatory (NSAIDs i.e. Advil, Aleve, Ibuprofen) or herbal supplements seven da ys prior to your surgery. These drugs may interfere with normal blood clotting and may cause excessive bleeding and bruising during or after the surgery. If you are taking Coumadin (warfarin), Plavix or any other blood thinners please let you r surgical team know as medication changes will be necessary. If you need a pain medication for general purposes, use Tylenol as directed. If you are in doubt about any medications that you are taking, please contact our office . Important Guidelines Do not smoke, drink alcohol or use recreational drugs for 24 hours before your surgery Do not eat any hard candy or chew gum after midnight the night before your surgery. Watch for any change in your health condition. Let your surgeon know right away if you do not feel well. Do not wear makeup, perfume, lotions or powder. Remove any nail turkish from at least one fingernail. Do not wear any jewelry to the hospital. Wear loose, comfortable clothing. Bring the case and solution for your contact lenses or wear your glasses. Leave all your valuables at home. Allow enough travel time so you re not late for your check in for surgery. Take a bath or shower and remember to shampoo your hair using your usual hair product be fore your arrival at the hospital. Please remember to brush your teeth the night before and the morning of your procedure. Surgery Check in Locations Day Stay Unit [facility], fourth floor Room 4518 Surgery Check in Time: Someone from your surgeon's office or [facility] will provide you with information regarding your check in time. If you have any questions about this, pl ease contact your surgeon's office. Going Home Your surgical team will decide when you are medically ready to go home. If you are released to go home on the same day as your procedure/surgery please note the following: You will not be able to drive. You will be required to have a competent adult drive you or accompany you by taxi or pub lic transportation on the day of discharge. It is also required that you have a competent adult assist you and look after you on the first night after you have undergone regional blocks (72 hours for patients going home with regional block pump), deep sedation, and/or general anesthesia. If you have questions or concerns after you go home, call your doctor s office. If it is after office hours, call the [facility] lumber tying machine operator at [phone] and ask them to page your doc tor. in this encounter Plan of Treatment Not on fileas of this encounter Visit Diagnoses Not on filein this encounter"
--- OUTSIDE RECORDS SUMMARY | ~2017-05-20 | XMS | Encounter Summary ---
Demographics + + + | Address | [address] | | | [place] [address] | + + + | Home Phone | | + + + | Preferred Language | Unknown | + + + | Marital Status | | + + + | Gnosticism Affiliation | PEN | + + + | Race | White | + + + | Ethnic Group | Not or | + + + Author + + + | Author | [facility] | + + + | Organization | [facility] | + + + | Address | Unknown | + + + | Phone | Unavailable | + + + Support + + + + + | Name | Relationship | Address | Phone | + + + + + | Mally Mckay | ECON | [address] | | | | | [place] | | | | | [address] | | + + + + + Care Team Providers + +------+ + | Care Dry Plasterer Helper Name | Role | Phone | + +------+ + | Johan Schumacher DO | PCP | | + +------+ + Reason for Referral Diagnostic Testing (Routine) +--------+--------+ + + + + | Status | Reason | Specialty | Diagnoses / | Referred By | Referred To | | | | | Procedures | Contact | Contact | +--------+--------+ + + + + | Closed | | Radiology | Diagnoses | Dixon | Rad Pet [facility] | | | | | Malignant | MD Trent | [address] | | | | | neoplasm of | [address] | | | | | esophagus, | [place] | [address] | | | | | unspecified | Rd | [facility] | | | | | location | [place], [place] | Pavilion | | | | | ([facility]) | [address] | [facility] | | | | | Procedures | Phone: | Pavilion | | | | | PET CT SKULL | [phone] | [place], [place] | | | | | BASE TO | Fax: | [address] | | | | | [place] | [phone] | Phone: | | | | | [facility] | | [phone] | | | | | IMAGE PET/CT | | Fax: | | | | | SKULL-THIGH | | [phone] | +--------+--------+ + + + + Diagnostic Testing (Routine) +--------+--------+ + + + + | Status | Reason | Specialty | Diagnoses / | Referred By | Referred To | | | | | Procedures | Contact | Contact | +--------+--------+ + + + + | Closed | | Radiology | Diagnoses | Dixon, | Rad Pet [facility] | | | | | Malignant | MD Trent | [address] | | | | | neoplasm of | [address] | | | | | esophagus, | [facility] | [address] | | | | | unspecified | Rd | [place] | | | | | location | [place], [place] | Pavilion | | | | | ([facility]) | [address] | [facility] | | | | | Procedures | Phone: | Pavilion | | | | | PET CT SKULL | [phone] | [facility] [place] | | | | | BASE TO | Fax: | [address] | | | | | [place] | [phone] | Phone: | | | | | [facility] | | [phone] | | | | | IMAGE PET/CT | | Fax: | | | | | SKULL-THIGH | | [phone] | +--------+--------+ + + + + Reason for Visit Diagnostic Testing (Routine) +--------+--------+ + + + + | Status | Reason | Specialty | Diagnoses / | Referred By | Referred To | | | | | Procedures | Contact | Contact | +--------+--------+ + + + + | Closed | | Radiology | Diagnoses | Dixon, | Rad Pet [facility] | | | | | Malignant | MD Trent | [address] | | | | | neoplasm of | [address] | [address] | | | | | esophagus, | [facility] | [address] | | | | | unspecified | Rd | [facility] | | | | | location | [place], [place] | Pavilion | | | | | ([facility]) | [address] | [facility] | | | | | Procedures | Phone: | Pavilion | | | | | PET CT SKULL | [phone] | [place], [place] | | | | | BASE TO | Fax: | [address] | | | | | [place] | [phone] | Phone: | | | | | [facility] | | [phone] | | | | | IMAGE PET/CT | | Fax: | | | | | SKULL-THIGH | | [phone] | +--------+--------+ + + + + Encounter Details +--------+ + + + + | Date | Type | Department | Care Team | Description | +--------+ + + + + | 03/06/ | Hospital | Radiation Oncology | Trent Metcalf MD | | | 2017 | Encounter | at [facility] [address] | | | | | [address] | [address] [place], | | | | | [place]en [place] | [place] [address] | | | | | Gretchen Rosas | [phone] | | | | | [address] [place], | | | | | | [place] [address] | | | | | | [phone] | | | +--------+ + + + [...] Not on fileas of this encounter Results PET CT SKULL BASE TO [place]THIGHS (03/06/2017 2:11 PM) + + + | Specimen | Performing Laboratory | + + + | | [facility] RAD[facility] VOICE RECOGNITION | + + + + + | Narrative | + + | EXAM: PET Scan from skull base to thighs, 03/06/17 13:02:33 HISTORY: Esophageal | | adenocarcinoma, staging COMPARISON: Outside CT 02-24-17 PROCEDURE: Following | | interview by nuclear medicine personnel, the patient uneventfully received 13.8 mCi of | | 18-F fluorodeoxyglucose via a right antecubital intravenous injection. The blood | | glucose level was 103 mg/dL. After 60 minutes in quiet conditions, non contrast | | CT scan for attenuation correction and anatomic localization was | | performed. Immediately following, and without moving the patient, standard body PET | | imaging was performed from the skull base through the mid thighs. Axial, sagittal, | | and coronal images are evaluated. FINDINGS: There is mild thickening of | | the distal esophagus with max SUV 5.1. There is also faint uptake in the very proximal | | stomach, max SUV 3. No additional foci of uptake are seen to suggest local or distant | | metastatic disease. No gastrohepatic of paraesophageal lymphadenopathy is seen on the | | CT. Multifocal uptake in the maxilla and mandible is attributable to odontogenic | | disease. Mild uptake (max SUV 4) is seen surrounding the left styloid process of the | | skull, of unknown significance. This may reflect muscle activation vs | | inflammation/infection, but metastatic disease is thought highly unlikely. The | | remainder of the head and neck, chest, abdomen, and pelvis demonstrate normal, | | physiologic tracer uptake. The unenhanced CT for attenuation and localization was | | also reviewed. No cervical adenopathy. The heart is near the upper limits of normal in | | size but otherwise unremarkable. No suspicious pulmonary nodules are identified. Well | | circumscribed hypodensity within the right lobe of the liver is likely a cyst or | | hemangioma (no increased uptake). Gallbladder is surgically absent. The spleen, | | pancreas, and adrenals are unremarkable. Kidneys demonstrate mild cortical | | atrophy/scarring but are otherwise normal. Pelvic organs are unremarkable. Vasectomy | | clips noted. The abdominal aorta is normal in caliber. No suspicious osseous lesions | | are identified. IMPRESSION: Moderately increased uptake within the distal | | esophagus and very proximal stomach, consistent with esophageal adenocarcinoma. No | | evidence of additional local or distant metastatic disease. I have personally | | reviewed the images and, if necessary, edited the report. I agree with the report as | | now presented. | + + + ------+ | Procedure Note | + ------+ | Service Account, Radiant Res In Interface - 03/06/2017 4:59 PM PST EXAM: PET Scan | | from skull base to thighs, 03/06/17 13:02:33HISTORY: Esophageal adenocarcinoma, | | stagingCOMPARISON: Outside CT [id number]: Following interview by nuclear | | medicine personnel, the patient uneventfully received 13.8 mCi of 18-F | | fluorodeoxyglucose via a right antecubital intravenous injection. The blood glucose | | level was 103 mg/dL. After 60 minutes in quiet conditions, non contrast CT scan for | | attenuation correction and anatomic localization was performed. Immediately following, | | and without moving the patient, standard body PET imaging was performed from the skull | | base through the mid thighs. Axial, sagittal, and coronal images are | | evaluated.FINDINGS: There is mild thickening of the distal esophagus with max SUV 5.1. | | There is also faint uptake in the very proximal stomach, max SUV 3. No additional foci | | of uptake are seen to suggest local or distant metastatic disease. No gastrohepatic of | | paraesophageal lymphadenopathy is seen on the CT.Multifocal uptake in the maxilla and | | mandible is attributable to odontogenic disease.Mild uptake (max SUV 4) is seen | | surrounding the left styloid process of the skull, of unknown significance. This may | | reflect muscle activation vs inflammation/infection, but metastatic disease is thought | | highly unlikely.The remainder of the head and neck, chest, abdomen, and pelvis | | demonstrate normal, physiologic tracer uptake.The unenhanced CT for attenuation and | | localization was also reviewed. No cervical adenopathy. The heart is near the upper | | limits of normal in size but otherwise unremarkable. No suspicious pulmonary nodules are | | identified. Well circumscribed hypodensity within the right lobe of the liver is likely | | a cyst or hemangioma (no increased uptake). Gallbladder is surgically absent. The | | spleen, pancreas, and adrenals are unremarkable. Kidneys demonstrate mild cortical | | atrophy/scarring but are otherwise normal. Pelvic organs are unremarkable. Vasectomy | | clips noted. The abdominal aorta is normal in caliber. No suspicious osseous lesions | | are identified.IMPRESSION: Moderately increased uptake within the distal esophagus and | | very proximal stomach, consistent with esophageal adenocarcinoma. No evidence of | | additional local or distant metastatic disease. I have personally reviewed the images | | and, if necessary, edited the report. I agree with the report as now presented. | |IMPRESSION: | | | |Moderately increased uptake within the distal esophagus and very proximal stomach, consiste nt with esophageal adenocarcinoma. No evidence of additional local or distant metastatic dis ease. | | | | | | | |I have personally reviewed the images and, if necessary, edited the report. I agree with t he report as now presented. | + ------+ CAPILLARY BLOOD GLUCOSE (NO CHG), POC (03/06/2017 12:48 PM) + +---------+ + | Component | Value | Ref Range | + +---------+ + | BLOOD GLUCOSE, POC | 103 (H) | 70 - 99 mg/dL | + +---------+ + + + + | Specimen | Performing Laboratory | + + + | | [facility], POINT OF CARE TESTS [address] | | | [place] [address] | + + + ORDERS OTHER (03/06/2017)in this encounter Visit Diagnoses + + | Diagnosis | + + | Malignant neoplasm of esophagus, unspecified location (HCC) | + +"
--- OUTSIDE RECORDS SUMMARY | ~2017-05-20 | XMS | Encounter Summary ---
Demographics + + + | Address | [address] | | | [place] [address] | + + + | Home Phone | | + + + | Preferred Language | Unknown | + + + | Marital Status | | + + + | Rastafarian Affiliation | PEN | + + + [...] + | Mally Mckay | ECON | [address] | | | | | [place] | | | | | [address] | | + + + + + Care Team Providers + +------+ + | Care Avionics Integration Engineer Name | Role | Phone | + +------+ + | Johan Schumacher DO | PCP | | + +------+ + Encounter Details +--------+ + + + + | Date | Type | Department | Care Team | Description | +--------+ + + + + | 03/26/ | MyChart | Digestive Health | Trent Metcalf MD | Endoscopy ultrasound | | 2018 | Encounter | Center at [facility] 6th | [address] | results | | | | Floor [address] | [address] [place], | | | | | [place] Mailcode: CH4S | [place] [address] | | | | | [facility] | [phone] | | | | | and [facility], [facility] | | | | | | floor [place], [place] | | | | | | [address] | | | | | | [phone] | | | +--------+ + + + [...]
--- OUTSIDE RECORDS SUMMARY | ~2017-05-20 | XMS | Encounter Summary ---
Demographics + + + | Address | [address] | | | [place] [address] | + + + | Home Phone | | + + + | Preferred Language | Unknown | + + + | Marital Status | | + + + | Sabianist Affiliation | PEN | + + + | Race | White | + + + | Ethnic Group | Not or | + + + Author + + + | Author | [facility] | + + + | Organization | [facility] | + + + | Address | Unknown | + + + | Phone | Unavailable | + + + Support + + + + + | Name | Relationship | Address | Phone | + + + + + | Mally Mckay | ECON | [address] | | | | | [place] | | | | | [address] | | + + + + + Care Team Providers + +------+ + | Care Radio Technician Name | Role | Phone | + +------+ + | Johan Schumacher DO | PCP | | + +------+ + Encounter Details +--------+ + + + + | Date | Type | Department | Care Team | Description | +--------+ + + + + | 02/27/ | Microcomputer Support Specialist | Digestive Health | Trent Metcalf MD | Malignant neoplasm | | 2017 | | Center at [facility] 6th | [address] | of esophagus, | | | | Floor [address] | [facility], | unspecified location | | | | Ave Mailcode: CH4S | [place] [address] | (HCC) (Primary Dx) | | | | [facility] | [phone] | | | | | and [facility], 6th | | | | | | floor [place], [place] | | | | | | [address] | | | | | | [phone] | | | +--------+ + + + [...] Not on fileas of this encounter Results PATHOLOGY CONSULT - REVIEW OUTSIDE SLIDES (03/11/2017) + + + -+ | Component | Value | Ref Range | + + + -+ | PATHOLOGY CONSULT - | SOURCE OF SPECIMEN:A Stomach, antrum, | | | SLIDES | biopsy; distal esophagus, biopsy | | | | Materials Received:Referring Institution: | | | | [facility] [place] [place], [place], | | | | [id number] Accession Number: | | | | [id number] Collection Date: | | | | 01/30/2017Sublabeled | | | | H&E A to | | | | B 2 Final | | | | Pathologic Diagnosis:Multiple specimens, A | | | | and B ([id number], 01/30/2017): A: | | | | Stomach, antrum, biopsy: - 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 Case | | | | reviewed by:Mayra Catalan M.D., Ph.D./ | | | | Surgical Pathology FellowAvelino Elliott, | | | | Avi, Ph.D./ Pathologist Clinical | | | | History:GERD, dysphagia, hiatal hernia, | | | | esophageal mass. My electronic | | | | signature indicates that I have personally | | | | reviewed alldiagnostic slides, the gross | | | | and/or microscopic portion of thisreport | | | | and formulated the final diagnosis. | | | | Electronically signed by: Avelino Sawant | Jese Elliott M.D., Ph.D.PathologistDate Completed: | | | | 03/14/2017 3:38PM | | | | | | | |Electronically signed by: Avelino Elliott M.D., Ph.D. | | | |Pathologist | | | |Date Completed: 03/14/2017 3:38PM | | + + + -+ + + + | Specimen | Performing Laboratory | + + + | | [facility] DEPARTMENT OF PATHOLOGY [address] | | | [place] [address] | + + + in this encounter Visit Diagnoses + + | Diagnosis | + + | Malignant neoplasm of esophagus, unspecified location (HCC) - Primary | + +"
--- OUTSIDE RECORDS SUMMARY | ~2017-05-20 | XMS | Encounter Summary ---
Demographics + + + | Address | [address] | | | [place] [address] | + + + | Home Phone | | + + + | Preferred Language | Unknown | + + + | Marital Status | | + + + | Faith Affiliation | PEN | + + + | Race | White | + + + | Ethnic Group | Not or | + + + Author + + + | Author | [facility] | + + + | Organization | [facility] | + + + | Address | Unknown | + + + | Phone | Unavailable | + + + Support + + + + + | Name | Relationship | Address | Phone | + + + + + | Mally Mckay | ECON | [address] | | | | | [place] | | | | | [address] | | + + + + + Care Team Providers + +------+ + | Care Oracle Application Consultant Name | Role | Phone | + [...] | +--------+ + + + + | 05/14/ | Abstract | Digestive Health | Trent Metcalf MD | Medical Records | | 2018 | | Center at [facility] 6th | [address] | Review | | | | Floor [address] | [address] [place], | | | | | [place] Mailcode: [facility] | [place] [address] | | | | | [facility] | [phone] | | | | | and [address], 6th | | | | | | floor [place], [place] | | | | | | [address] | | | | | | [phone] | | | +--------+ + + + [...]
--- OUTSIDE RECORDS SUMMARY | ~2017-05-20 | XMS | Encounter Summary ---
Demographics + + + | Address | [address] | | | [place] [address] | + + + | Home Phone | | + + + | Preferred Language | Unknown | + + + | Marital Status | | + + + | Faith Affiliation | PEN | + + + | Race | White | + + + | Ethnic Group | Not or | + + + Author + + + | Author | [facility] | + + + | Organization | [facility] | + + + | Address | Unknown | + + + | Phone | Unavailable | + + + Support + + + + + | Name | Relationship | Address | Phone | + + + + + | Mally Mckay | ECON | [address] | | | | | [place] | | | | | [address] | | + + + + + Care Team Providers + +------+ + | Care Network Security Engineer Name | Role | Phone | [...] | | neoplasm of | [address] | | | | | esophagus, | [place] | [address] | | | | | unspecified | Rd | [place] | | | | | location | [place], [place] | Pavilion | | | | | (HCC) | [address] | [place] | | | | | Procedures | Phone: | Pavilion | | | | | PET CT SKULL | [phone] | [place], [place] | | | | | BASE TO | Fax: | [address] | | | | | MID-THIGHS | [phone] | Phone: | | | | | [place] TUMOR | | [phone] | | | | | IMAGE PET/CT | | Fax: | | | | | SKULL-THIGH | | [phone] | +--------+--------+ + + + + PROC - Dept/Practice Procedure (Urgent) +--------+--------+ + + + + | Status | Reason | Specialty | Diagnoses / | Referred By | Referred To | | | | | Procedures | Contact | Contact | +--------+--------+ + + + + | Closed | | Gastroenterol | Diagnoses | Dixon, | Gas Gi Proc | | | | ogy | Malignant | MD Trent | [address] | | | | | neoplasm of | [address] | | | | | esophagus, | [facility] | [address] | | | | | unspecified | Rd | Mailcode: | | | | | location | [place], [place] | [facility] | | | | | (HCC) | [address] | [place] | | | | | Procedures | Phone: | [address] | | | | | CONSULT TO | [phone] | [place], | | | | | GI PROCEDURE | Fax: | [place] [address] | | | | | UNIT: EUS | [phone] | Phone: | | | | | LIMITED [place] | | [phone] | | | | | UPPR GI ENDO | | Fax: | | | | | [address], [place] | | [phone] | | | | | EXAM [place] | | | | | | | ANESTH UPPER | | | | | | | GI | | | | | | | ENDOSCOPIC | | | | | | | VISUALIZE | | | +--------+--------+ + + + + Encounter Details +--------+ + + + + | Date | Type | Department | Care Team | Description | +--------+ + + + + | 02/24/ | [facility] | Digestive [facility] | Trent Metcalf MD | Malignant neoplasm | | 2017 | | Center at [facility] 6th | [address] | of esophagus, | | | | Floor [address] [place], | unspecified location | | | | Ave Mailcode: CH[address]S | [place] [address] | ([facility]) (Primary Dx) | | | | [facility] | [phone] | | | | | and , | | | | | | floor [place], [place] | | | | | | [address] | | | | | | [phone] | | | +--------+ + + + [...] Laboratory | + + + | | [facility] RADIOLOGY VOICE RECOGNITION | + + + [...] Esophageal adenocarcinoma, | | stagingCOMPARISON: Outside CT [id number]: Following interview by nuclear | | medicine [...] report as now presented. | + ------+ in this encounter Visit Diagnoses + + | Diagnosis | + + | Malignant neoplasm of esophagus, unspecified location (HCC) - Primary | + +"
--- OUTSIDE RECORDS SUMMARY | ~2017-05-20 | XMS | Clinical Summary ---
Demographics + + + | Address | [address] | | | [place] [address] | + + + | Home Phone | | + + + | Preferred Language | Unknown | + + + | Marital Status | | + + + | Nondenominational Affiliation | PEN | + + + | Race | White | + + + | Ethnic Group | Not or | + + + Author + + + | Author | [facility] REVENUE LOCATIONS | + + + | Organization | NON REVENUE LOCATIONS | + + + | Address | Unknown | + + + | Phone | Unavailable | + + + Support + + + + + | Name | Relationship | Address | Phone | + + + + + | Mally Mckay | ECON | [address] | | | | | [place] | | | | | [address] | | + + + + + Care Team Providers + +------+ + | Care Manager Baby Name | Role | Phone | + +------+ + | Johan Soares DO | PP | | + +------+ + Source Comments JERRELL is fully live on both EpicCare Ambulatory and EpicCare InPatient.[facility] Allergies + + + + + + | Active Allergy | Reactions | Severity | Noted | Comments | | | | | Date | | + + + + + + | Oxycodone | Nausea, Acute | | 03/04/20 | | | | Tubular Necrosis | | 17 | | + + + + + + | Penicillins | Hives | Low | 11/07/19 | | | | | | 17 | | + + + + + + Current Medications + + +-------+---------+------+------+-------+ | Prescription | Sig. | Disp. | Refills | Star | End | Statu | | | | | | t | Date | s | | | | | | Date | | | + + +-------+---------+------+------+-------+ | metoprolol | Take 25 mg by mouth | | | | | Activ | | tartrate 25 mg oral | two times daily. | | | | | e | | tablet | | | | | | | + + +-------+---------+------+------+-------+ | cetirizine 10 mg | Take 10 mg by mouth | | | | | Activ | | oral tablet | once daily in the | | | | | e | | | morning. | | | | | | + + +-------+---------+------+------+-------+ | omeprazole 20 mg | Take 20 mg by mouth | | | | | Activ | | oral capsule,delayed | once daily in the | | | | | e | | release(DR/EC) | morning. | | | | | | + + +-------+---------+------+------+-------+ | aspirin EC 81 mg | Take 81 mg by mouth | | | | | Activ | | oral tablet,delayed | once daily in the | | | | | e | | release (DR/EC) | morning. | | | | | | + + +-------+---------+------+------+-------+ Active Problems + + + | Problem | Noted Date | + + + | Paroxysmal atrial fibrillation (HCC) | 11/06/2016 | + + + Encounters +--------+ + + + + | Date | Type | Specialty | Care Team | Description | +--------+ + + + + | 05/14/ | Abstract | | Heidy Metcalf MD | Medical Records | | 2017 | | | | Review | +--------+ + + + + | 04/15/ | Abstract | | Heidy Metcalf MD | Medical Records | | 2017 | | | | Review | +--------+ + + + + | 03/26/ | MyChart | | Heidy Metcalf MD | Endoscopy ultrasound | | 2017 | Encounter | | | results | +--------+ + + + + | 03/19/ | Documentati | | Heidy Metcalf MD | Tumor Board | | 2018 | on | | | Recommendation (ECC) | +--------+ + + + + | 03/11/ | Hospital | | | | | 2016 | Encounter | | | | +--------+ + + + + | 03/07/ | Hospital | | Chandra Montesinos, | | | 2016 | Encounter | | MD | | +--------+ + + + + | 03/07/ | Office | | Heidy Metcalf MD | Malignant neoplasm | | 2016 | Visit | | | of esophagus, | | | | | | unspecified location | | | | | | (HCC) (Primary Dx) | +--------+ + + + + | 03/06/ | Hospital | | Heidy Metcalf MD | | | 2016 | Encounter | | | | +--------+ + + + + | 03/04/ | Telephone-S | | | Pre-op evaluation | | 2016 | cheduled | | | | +--------+ + + + + | 03/04/ | Anesthesia | | Abby Gamino, | | | 2016 | Event | | RN | | +--------+ + + + + | 03/04/ | Orders Only | | Abby Gamino, | | | 2016 | | | RN | | +--------+ + + + + | 02/28/ | Abstract | | Heidy Metcalf MD | Referral To Surgery | | 2016 | | | | - General | +--------+ + + + + | 02/27/ | [facility] | | Heidy Metcalf MD | Malignant neoplasm | | 2017 | | | | of esophagus, | | | | | | unspecified location | | | | | | (HCC) (Primary Dx) | +--------+ + + + + | 02/25/ | Inside | | Heidy Metcalf MD | | | 2017 | Referral | | | | | | Order | | | | +--------+ + + + + | 02/25/ | Documentati | | Lab, Gi Procedure | Medical Records | | 2017 | on | | | Review | +--------+ + + + + | 02/24/ | [facility] Shelter | | Heidy Metcalf MD | Malignant neoplasm | | 2017 | | | | of esophagus, | | | | | | unspecified location | | | | | | (HCC) (Primary Dx) | +--------+ + + + + | 02/24/ | Abstract | | Clinic, Surgery | | | 2016 | | | | | +--------+ + + + + | 02/21/ | Hospital | | | | | 2016 | Encounter | | | | +--------+ + + + + from Last 3 Months Social History + +-------+ +--------+------+ | Tobacco [...] on file | | + + + Last Filed Vital Signs + + + [...] AM PST | + + + + Plan of Treatment + + + + + | Health Maintenance | Due Date | Last Done | Comments | + + + + + | INFLUENZA VACCINE | | | | | (FLU SHOT) | 7 | | | + + + + + Procedures + +--------+ + + + | [...] | | + +--------+ + + + from Last 3 Months Results PATHOLOGY CONSULT - REVIEW OUTSIDE SLIDES (03/11/2017) + + + -+ | Component | Value | Ref Range | + + + -+ | PATHOLOGY CONSULT - | SOURCE OF SPECIMEN:A Stomach, antrum, | | | SLIDES | biopsy; distal esophagus, biopsy | | | | Materials Received:Referring Institution: | | | | [facility], [place], [place], | | | | [id number] Accession Number: | | | | [id number] Collection Date: | | | | 01/30/2017Sublabeled | | | | H&E A to | | | | B 2 Final | | | | Pathologic Diagnosis:Multiple specimens, A | | | | and B ([id number], 01/30/2017): A: | | | | Stomach, [...] | | | Electronically signed by: Avelino Goddard | | | | Earl Cárdenas, Ph.D.PathologistDate Completed: | | | | 03/14/2017 3:38PM | | | | | | | |Electronically signed by: Avelino Elliott M.D., Ph.D. | | | |Pathologist | | | |Date Completed: 03/14/2017 3:38PM | | + + + -+ + + + | Specimen | Performing Laboratory | + + + | | [facility] DEPARTMENT OF PATHOLOGY [address] | | | [place] [address] | + + + EUS UPPER (03/07/2017 1:53 PM) + + + | Specimen | Performing Laboratory | + + + | | [facility] | + + + + + | Narrative | + + | Procedure Date: 03/07/2017 Patient Name: Kevin Mckay Order #: | | [id number] Date of : 1940 CSN: [id number] Admit Type: Ambulatory Room: GI 3 | | Procedure: Upper EUS Indications: Pre-treatment | | staging of esophageal adenocarcinoma Providers: CHANDRA MONTESINOS MD | | (Doctor), JEREMIAH RUANO RN (Nurse), | | BEBO VARNER, Auto Body Repair Technician (Auto Body Repair Technician) Referring MD: HEIDY METCALF MD | | Requesting Provider: Medicines: Monitored [...] procedure. The Olympus | | [id number] Gastroscope #[id number] was introduced | | through the mouth, and advanced to the second | | part of duodenum. The Olympus [id number] | | Radial Echoendoscope #[id number] was introduced | | through the mouth, [...] performed the entire procedure. | | MD CHANDRA Soto MD 03/07/2017 2:26:50 PM This report has been | | signed electronically. Number of Addenda: 0 Note Initiated On: 03/07/2017 1:53 PM CC | | Letter to: JOHAN SOARES DO | + + PET CT SKULL BASE TO MID-THIGHS (03/06/2017 2:11 PM) + + + | Specimen | Performing Laboratory | + + + | | [facility] RADIOLOGY VOICE RECOGNITION | + + + [...] Esophageal adenocarcinoma, | | stagingCOMPARISON: Outside CT [id number]: Following interview by nuclear | | medicine [...] | + + + | | [facility] [address] | | | [place] [address] | + + + ORDERS OTHER (03/06/2017)from Last 3 Months
[2017-05-20] MEDS ORDERED: CARDIZEM CD120 MG PO (15:41)
--- NOTE | 2017-05-20 20:49 | EKG ---
[facility] [address] [facility] [place] [address] Signed Atrial fibrillation with rapid ventricular response with premature ventricular or aberrantly conducted complexes ST \T\ T wave abnormality, consider inferolateral ischemia Abnormal ECG No previous ECGs available Confirmed by LOY BOO MD ([id number]) on 05/20/2017 8:49:40 PM Electronically Signed By: LOY BOO MD 05/20/17 2049 PATIENT NAME: LISARK Electrocardiogram DATE OF : 44 PHYSICIAN: LOY BOO MD REPORT #: [id number] REPORT IS CONFIDENTIAL AND NOT TO BE RELEASED WITHOUT AUTHORIZATION
--- NOTE | 2017-05-20 20:49 | EKG ---
[facility] [address] [place] [address] Signed Normal sinus rhythm Normal ECG When compared with ECG of 20-MAY-2017 13:58, (Unconfirmed) Sinus rhythm has replaced Atrial fibrillation Vent. rate has decreased BY [address] no longer depressed in Anterolateral leads T wave inversion less evident in Inferior leads T wave inversion no longer evident in Lateral leads Confirmed by LOY BOO MD ([id number]) on 05/20/2017 8:49:48 PM Electronically Signed By: LOY BOO MD 05/20/17 2049 PATIENT NAME: RK GONZALEZ Electrocardiogram DATE OF : 44 PHYSICIAN: LOY BOO MD REPORT #: [id number] REPORT IS CONFIDENTIAL AND NOT TO BE RELEASED WITHOUT AUTHORIZATION
== END 2017-05-20 16:16 | disposition home or self-care (01) ==
LOC: ED 13:54
DX: I48.91 Unspecified atrial fibrillation (principal); Z88.0 Allergy status to penicillin; Z88.5 Allergy status to narcotic agent; Z79.899 Other long term (current) drug therapy; Z88.8 Allergy status to other drugs, medicaments and biological substances; Z79.82 Long term (current) use of aspirin
CPT/HCPCS: 71045; 80048; 83735; 84484; 85025; 93005; 93010; 99283

== ENCOUNTER 2021-02-22 15:28 | Emergency (ER) | payer MEDICARE ==
[~2021-02-22] VITALS: Ht 172.7 cm; Wt 77.6 kg
[~2021-02-22 15:28] MED LIST changes: +CARDIZEM CD120 MG PO
--- NOTE | 2021-02-22 21:21 | EKG ---
[facility] [address] [place] [address] Signed Sinus bradycardia Otherwise normal ECG When compared with ECG of 20-MAY-2017 15:07, No significant change was found Confirmed by ELVIS HAGAN DO ([id number]) on 02/22/2021 9:20:45 PM Electronically Signed By: ELVIS HAGAN DO 02/22/212120 PATIENT NAME: LISARK SHANDRA Electrocardiogram DATE OF : 44 PHYSICIAN: ELVIS HAGAN DO REPORT #: [id number] REPORT IS CONFIDENTIAL AND NOT TO BE RELEASED WITHOUT AUTHORIZATION
== END 2021-02-22 19:36 | disposition home or self-care (01) ==
LOC: ED 15:28
DX: H54.62 Unqualified visual loss, left eye, normal vision right eye (principal); I48.0 Paroxysmal atrial fibrillation; Z88.0 Allergy status to penicillin; Z88.8 Allergy status to other drugs, medicaments and biological substances; Z88.5 Allergy status to narcotic agent
CPT/HCPCS: 70450; 85025; 85651; 86140; 93005; 93010; 99284-25

== ENCOUNTER 2021-11-25 10:37 | Emergency (ER) | payer MEDICARE ==
[~2021-11-25] VITALS: Ht 172.7 cm; Wt 79.8 kg
[2021-11-25] MEDS ORDERED: BRIMONIDINE TART5 M1 OP (11:01)
[2021-11-25] MEDS ORDERED: SIMBRINZA 1%-0.28 ML OPTH (11:01)
[2021-11-25] MEDS ORDERED: TAMSULOSIN HCL0.4 MG PO (11:01)
[2021-11-25] MEDS ORDERED: PRILOSEC OTC20 MG PO (11:02)
[2021-11-25] MEDS ORDERED: ASPIRIN81 MG PO (11:02)
--- NOTE | 2021-11-25 12:27 | EKG ---
[facility] [address] [place], [place] [address] Signed Sinus bradycardia Otherwise normal ECG When compared with ECG of 22-FEB-2021 17:09, No significant change was found Confirmed by SAMANTHA LEE MD ([id number]) on 11/25/2021 12:27:30 PM Electronically Signed By: SAMANTHA LEE MD 11/25/21 1227 PATIENT NAME: LISARK SHANDRA Electrocardiogram DATE OF : 44 PHYSICIAN: SAMANTHA LEE MD REPORT #: [id number] REPORT IS CONFIDENTIAL AND NOT TO BE RELEASED WITHOUT AUTHORIZATION
== END 2021-11-25 14:57 | disposition home or self-care (01) ==
LOC: ED 10:37
DX: E16.2 Hypoglycemia, unspecified (principal); R55 Syncope and collapse; E86.0 Dehydration; Z88.5 Allergy status to narcotic agent; Z88.0 Allergy status to penicillin; Z91.09 Other allergy status, other than to drugs and biological substances; Z79.899 Other long term (current) drug therapy; Z79.82 Long term (current) use of aspirin
CPT/HCPCS: 36415; 71045; 80053; 81001; 82150; 83735; 84484; 85025; 93005; 93010; J7030

== ENCOUNTER 2024-03-25 05:00 | Emergency (ER) | payer MEDICARE ==
[~2024-03-25] VITALS: Ht 172.7 cm; Wt 92.1 kg
[~2024-03-25 05:00] MED LIST changes: +ASPIRIN81 MG PO; +BRIMONIDINE TART5 M1 OP; +SIMBRINZA 1%-0.28 ML OPTH; +TAMSULOSIN HCL0.4 MG PO
[2024-03-25] MEDS ORDERED: METOPROLOL TART50 MG PO (05:13)
[2024-03-25] MEDS ORDERED: dilTIAZem HCL 25 MG/5 ML VIAL IV ONE (05:15)
[2024-03-25] MEDS ORDERED: BRIMONIDINE-TIMO5 ML OD (05:15)
[2024-03-25] MEDS ORDERED: ALBUTEROL/IPRATROPIUM 3 ML NEB INH PRN (05:15)
[2024-03-25 05:26] LABS: BASOPHILS 0.8 % (0-2); EOSINOPHILS 6.6 % (0-6); HEMATOCRIT 37.8 % (35.0-50.0); HEMOGLOBIN 12.8 g/dL (12.0-18.0); LYMPHOCYTES 16.7 % (24-44); MCH 34.2 (27-36); MCHC 33.8 g/dl (30-36); MCV 101.3 fl (81-99); MONOCYTES 8.3 % (0-12); NEUTROPHILS 67.6 % (39-80); PLATELET COUNT 172 K/uL (140-440); RBC 3.73 M/ul (4.3-5.7); RDW 13.4 (10.5-15.0)
[2024-03-25 05:45] LABS: ALBUMIN 3.7 g/dL (3.4-5.0); ALBUMIN/GLOBULIN RATIO 1.03 (1.1-2.4); ANION GAP 16.8 (7-21); BUN/CREATININE RATIO 14.17 (6.0-28.6); CALCIUM 8.4 mg/dL (8.5-10.1); CREATININE, SERUM 1.27 mg/dL (0.70-1.30); POTASSIUM 3.8 mmol/L (3.5-5.1); PROTEIN, TOTAL 7.3 g/dL (6.4-8.2)
[2024-03-25] MEDS ORDERED: LASIX20 MG PO (06:42)
[2024-03-25] MEDS ORDERED: DILTIAZEM 24HR180 M1 PO (06:42)
[2024-03-25 07:03] VITALS: BP 98/60
--- NOTE | 2024-03-25 22:20 | EKG ---
[facility] [address] [place] [address] Signed Atrial flutter with variable AV block Nonspecific ST abnormality Abnormal ECG When compared with ECG of 25-NOV-2021 10:50, Atrial flutter has replaced Sinus rhythm Vent. rate has increased BY [address] now depressed in Lateral leads Confirmed by Aliyah Cooper MD () on 03/25/2024 10:20:04 PM Electronically Signed By: ALIYAH COOPER MD 03/25/24 2220 PATIENT NAME: RK GONZALEZ SHANDRA Electrocardiogram DATE OF : 44 PHYSICIAN: ALIYAH COOPER MD REPORT #: [id number] REPORT IS CONFIDENTIAL AND NOT TO BE RELEASED WITHOUT AUTHORIZATION
== END 2024-03-25 07:03 | disposition home or self-care (01) ==
LOC: ED 05:00
PROVIDERS: Family Medicine
DX: I48.0 Paroxysmal atrial fibrillation (principal); I50.9 Heart failure, unspecified; Z88.1 Allergy status to other antibiotic agents; Z91.048 Other nonmedicinal substance allergy status; Z88.5 Allergy status to narcotic agent; Z79.82 Long term (current) use of aspirin; Z79.899 Other long term (current) drug therapy
CPT/HCPCS: 36415; 71045; 80053; 83735; 83880; 84484; 85025; 93005; 93010; 96374; 99285-25